=== PATIENT | female | born 1995 | race Caucasian/White ===

== ENCOUNTER 2021-04-05 09:33 | Emergency (ER) | payer SELFPAY ==
[2021-04-05] VITALS (7 sets, daily range): BP systolic 132–157; BP diastolic 80–105; PULSE 92–113; RESP 16–24; TEMP 37.3; O2SAT 97–100; BMI 45.9
--- NOTE | 2021-04-05 10:14 | ED_ITS ---
HPI - General Adult General Chief complaint: Abdominal Pain Stated complaint: abdominal pain started 04/03 Time Seen by Provider: 04/05/21 09:49 Source: patient Mode of arrival: Ambulatory Limitations: no limitations History of Present Illness HPI narrative: 25-year-old woman with a history of intermittent persistent asthma and morbid obesity presents with 2 days of upper abdominal pain. She states that it awoke her from sleep 2 nights ago she describes it as a dull consistent pain that if she turns or twists the right way can get worse. Not associated with nausea or vomiting. She has had some chills but no fevers. She notes that she has been having regular bowel movements but does not feel that they are her usual. She does not describe any burning type pain and food does not seem to influence this pain 1 where the other. Related Data Home Medications Medication Instructions Recorded Confirmed acetaminophen 500 mg tablet 500 mg PO QID PRN 07/02/18 07/13/18 cetirizine 10 mg tablet 10 mg PO DAILY 07/02/18 07/13/18 guaifenesin 1,200 mg tablet, 1,200 mg PO Q12H 07/02/18 07/13/18 extended release 12 hr Previous Rx's Medication Instructions Recorded levalbuterol tartrate 45 2 puff INHALATION Q6HP PRN #15 gram 07/09/18 mcg/actuation aerosol inhaler Allergies Allergy/AdvReac Type Severity Reaction Status Date / Time cat dander Allergy Severe Dyspnea Verified 04/05/21 09:48 house dust Allergy Severe Dyspnea Verified 04/05/21 09:48 trini Allergy Severe Itchiness Verified 04/05/21 09:48 in throat Review of Systems Review of Systems Narrative: Pertinent positive and negative findings as per HPI Remainder of review of systems is otherwise unremarkable for Constitutional: weakness ENT: No sore throat, neck pain, ear pain CV: Chest pain, palpitations, dyspnea on exertion Respiratory: Cough, wheeze, dyspnea : Dysuria, hematuria, flank pain MS: Muscle weakness, numbness, joint swelling or warmth Skin: Rashes, nonhealing lesions Neuro: Syncope, dizziness, tingling Patient History Medical History Asthma History of keloid of skin (2010) Seasonal allergies Surgical History History of local excision of skin lesion (2010) Family History Father No problems noted. Grandfather Heart attack Grandmother Breast cancer Ovarian cancer Uterine cancer Mother No problems noted. Grandfather COPD (chronic obstructive pulmonary disease) Grandmother No problems noted. Social History Smoking Status: Never smoker Smoking Status: Never smoker alcohol intake frequency: holidays/special occasions only Substance Use Type: does not use Exam Narrative Exam Narrative: General: Healthy appearing, in no acute distress. Able to give a complete and coherent history. Well-nourished well-developed HEENT: Moist mucous membranes, normal sclera with reactive pupils, Neck: No JVD, supple Respiratory: Lungs are clear to auscultation, no wheezing no rales no rhonchi. Full and symmetrical air movement Cardiac: Regular rate and rhythm no murmurs no bruits Abdomen: Soft, obese, mild tenderness in upper quadrants without rebound or guarding good bowel tones, no flank pain Skin: Warm and dry, no rashes Neurologic: Grossly neurologically intact with no obvious asymmetries or abnormalities Extremities: No trauma, well perfused Psych: Cooperative, appropriate insight and affect Initial Vital Signs Initial Vital Signs: Vital Signs Temperature 99.1 F 04/05/21 09:40 Pulse Rate 113 H 04/05/21 09:40 Respiratory Rate 16 04/05/21 09:40 Blood Pressure 157/105 H 04/05/21 09:40 Pulse Oximetry 99 04/05/21 09:40 Course Orders Ordered: ED Orders 04/05/21 09:40 Urine Culture Stat Urine Microscopic Stat 04/05/21 09:48 EKG-12 Lead Stat 04/05/21 10:10 Complete Blood Count AUTO DIFF Stat Comprehensive Metabolic Panel Stat Lipase Stat 04/05/21 10:21 XR abdomen 1V Stat Vital Signs Vital signs: Vital Signs - 8 hr 04/05/21 09:40 04/05/21 10:25 04/05/21 10:30 Temperature 99.1 F Pulse Rate 113 H 97 H 92 H Respiratory Rate 16 20 20 Blood Pressure 157/105 H Pulse Oximetry 99 98 100 04/05/21 11:00 04/05/21 11:18 04/05/21 11:30 Temperature Pulse Rate 93 H 101 H 94 H Respiratory Rate 20 24 Blood Pressure 132/80 139/80 Pulse Oximetry 99 99 99 Medical Decision Making Medical Records Medical records reviewed: Yes I reviewed the patient's medical records. Lab Data Lab results reviewed: Yes I reviewed the patient's lab results. Result diagrams: 04/05/21 10:10 04/05/21 10:10 Labs: Lab Results 04/05/21 04/05/21 04/05/21 Range/Units 09:40 10:10 10:10 WBC 10.9 (4.5-11.0) X10^3/uL RBC 4.57 (4.0-5.2) X10^6/uL Hgb 13.3 (12.0-16.0) g/dL Hct 40.2 (36-46) % MCV 87.9 (80-100) fL MCH 29.1 (26-34) PG MCHC 33.2 (30-36) % RDW 12.9 (11.6-14.8) % Plt Count 231 (150-400) X10^3/uL Neut % (Auto) 72.2 (50-75) % Lymph % (Auto) 18.8 L (25-40) % Graves % (Auto) 7.8 (3-14) % Eos % (Auto) 0.8 L (2-4) % Baso % (Auto) 0.4 (0-2) % Neut # (Auto) 7900 H (3234-0518) /uL Lymph # (Auto) 2000 (4353-9901) /uL Graves # (Auto) 800 (0-900) /uL Eos # (Auto) 100 (0-450) /uL Baso # (Auto) 0 (0-100) /uL Sodium 138 (137-145) mmol/L Potassium 3.6 (3.4-5.1) mmol/L Chloride 104 (98-107) mmol/L Carbon Dioxide 25 (22-32) mmol/L BUN 10 (7-17) mg/dL Creatinine 0.50 L (0.52-1.04) mg/dL Estimated GFR > 60.0 (>60) mL/min BUN/Creatinine Ratio 20.0 (6-22) Glucose 113 H (70-100) mg/dL Calcium 9.2 (8.4-10.2) mg/dL Total Bilirubin 0.7 (0.2-1.3) mg/dL AST 47 H (14-36) IU/L ALT 71 H (<35) IU/L Alkaline Phosphatase 70 (38-126) U/L Total Protein 7.9 (6.3-8.2) g/dL Albumin 4.3 (3.5-5.0) g/dL Globulin 3.6 (1.7-4.1) g/dL Albumin/Globulin Ratio 1.2 (1.0-2.8) Lipase 60 (23-300) U/L Urine RBC 10-30/hpf H (0-5/HPF) Urine WBC 1-5/hpf (0-5/HPF) Ur Squamous Epith Cells 1-5 /hpf (0-5/HPF) Amorphous Sediment 1+ Urine Bacteria Moderate (10-30) H (None) Ur Culture Indicated? Specimen cultured Point of Care Testing Test Results Negative Urine Dip Bedside Urine Glucose Negative Bedside Urine Bilirubin - Negative Bedside Urine Ketone - Negative Urine Specific [place] 1.025 Bedside Urine Occult Blood +++ Bedside Urine pH 6.0 Bedside Urine Protein +/- 15 Bedside Urine Urobilinogen - Negative Bedside Urine Nitrite - Negative Bedside Urine Leukocytes - Negative Esterase Point of care testing: Point of Care Testing Test Results Negative Urine Dip Bedside Urine Glucose Negative Bedside Urine Bilirubin - Negative Bedside Urine Ketone - Negative Urine Specific [place] 1.025 Bedside Urine Occult Blood +++ Bedside Urine pH 6.0 Bedside Urine Protein +/- 15 Bedside Urine Urobilinogen - Negative Bedside Urine Nitrite - Negative Bedside Urine Leukocytes - Negative Esterase Imaging Data Abdominal x-ray: Radiologist's Impression: FINDINGS: Surgical changes and devices: None. Bowel: Bowel gas pattern is normal. Soft tissues: No suspicious abdominal calcifications. Visualized solid organ contours appear normal in size. Bones: No suspicious bony lesions. IMPRESSION: Nonspecific bowel gas pattern, no evidence of intestinal obstruction or perforation. Dictated by: Rodolfo Miller M.D. on 04/05/2021 at 10:47 MDM Narrative Medical decision making narrative: Woman presents with upper abdominal pain without flank pain or dysuria. Microscopic urine has some red blood cells and occasional bacteria. This has been cultured and will wait to see culture prior to treating. Findings are reviewed with patient. Pain is minimal and she certainly does not have a surgical abdomen. Will have her try 2 weeks of omeprazole to see if this influences her pain. Will also suggest she follow-up with the health divisional human resources director to try and establish a primary care physician. If pain worsens the next step in her workup would be a CT scan of the abdomen but I do not feel that is required or necessary with today's visit. All of this is reviewed with patient questions are answered. She is safe for home discharge Discharge Plan Departure Prescriptions: No Action cetirizine [Zyrtec] 10 mg tablet 10 mg PO DAILY RF: 0 acetaminophen [Tylenol Extra Strength] 500 mg tablet 500 mg PO QID PRNRF: 0 guaifenesin [Mucinex] 1,200 mg tablet extended release 12hr 1,200 mg PO Q12H RF: 0 levalbuterol tartrate [Xopenex HFA] 45 mcg/actuation HFA aerosol inhaler 2 puff INHALATION Q6HP PRN (Reason: shortness of breath or wheezing) Qty: 15 RF: 2
[2021-04-05 10:15] LABS: Amorphous Sediment Urine 1+; Bacteria Urine Moderate (10-30); Culture Indicated Urine Specimen Cultured; RBC Urine 10-30/HPF (0-5/HPF); Squamous Epithelial Cell Urine 1-5 /HPF (0-5/HPF); WBC Urine 1-5/HPF (0-5/HPF)
[2021-04-05 10:20] LABS: Add Manual Diff / Slide Review NO; Basophils Absolute Auto 0 /uL (0-100); Basophils Percent Auto 0.4 % (0-2); Eosinophils Absolute Auto 100 /uL (0-450); Eosinophils Percent Auto 0.8 % (2-4); Hematocrit 40.2 % (36-46); Hemoglobin 13.3 g/dL (12.0-16.0); Lymphocytes Absolute Auto 2000 /uL (1100-4500); Lymphocytes Percent Auto 18.8 % (25-40); Mean Corpuscular HGB Conc 33.2 % (30-36); Mean Corpuscular Hemoglobin 29.1 PG (26-34); Mean Corpuscular Volume 87.9 fL (80-100); Monocytes Absolute Auto 800 /uL (0-900); Monocytes Percent Auto 7.8 % (3-14); Neutrophils Absolute Auto 7900 /uL (1500-7000); Neutrophils Percent Auto 72.2 % (50-75); Platelet Count 231 X10^3/uL (150-400); Red Blood Cell Count 4.57 X10^6/uL (4.0-5.2); Red Cell Distribution Width 12.9 % (11.6-14.8); White Blood Cell Count 10.9 X10^3/uL (4.5-11.0)
--- NOTE | 2021-04-05 10:21 | DI.RAD.S_ITS ---
PROCEDURE: XR ABDOMEN 1V INDICATIONS: abdominal pain upper quadrants TECHNIQUE: One view of the abdomen acquired. COMPARISON: None. FINDINGS: Surgical changes and devices: None. Bowel: Bowel gas pattern is normal. Soft tissues: No suspicious abdominal calcifications. Visualized solid organ contours appear normal in size. Bones: No suspicious bony lesions. IMPRESSION: Nonspecific bowel gas pattern, no evidence of intestinal obstruction or perforation. Dictated by: Rodolfo Miller M.D. on 04/05/2021 at 10:47 Approved by: Rodolfo Miller M.D. on 04/05/2021 at 10:47
[2021-04-05 10:34] LABS: Alanine Aminotransferase 71 IU/L (<35); Albumin 4.3 g/dL (3.5-5.0); Albumin Globulin Ratio 1.2 (1.0-2.8); Alkaline Phosphatase 70 U/L (38-126); Aspartate Aminotransferase 47 IU/L (14-36); Bilirubin Total 0.7 mg/dL (0.2-1.3); Blood Urea Nitrogen 10 mg/dL (7-17); Calcium 9.2 mg/dL (8.4-10.2); Carbon Dioxide 25 mmol/L (22-32); Chloride 104 mmol/L (98-107); Estimated Glomerular Filt Rate > 60.0 mL/min (>60); Globulin 3.6 g/dL (1.7-4.1); Glucose 113 mg/dL (70-100); HEMOLYSIS < 15 (0-50); Lipase 60 U/L (23-300); Potassium 3.6 mmol/L (3.4-5.1); Sodium 138 mmol/L (137-145); Total Protein 7.9 g/dL (6.3-8.2)
== END 2021-04-05 12:27 | disposition home or self-care (01) ==
PROVIDERS: Emergency Provider Emergency Medicine
DX: R10.10 Upper abdominal pain, unspecified (principal)
CPT/HCPCS: 36415; 74018; 80053; 81003; 81015; 81025; 83690; 85025; 87086; 93005; 93010; 99283; 99284

== ENCOUNTER → 2024-06-14 08:12 | Outpatient (CLI) | payer SELFPAY ==
[2024-06-14 09:21] LABS: Influenza A - CEPHEID Flu A NEGATIVE (NEGATIVE); Influenza B - CEPHEID Flu B NEGATIVE (NEGATIVE); Respiratory Syncytial Virus Negative (Negative)
[2024-06-14 14:57] LABS: COVID-19 CEPHEID 4-PLEX PCR Negative (Negative)
== END ==
PROVIDERS: Visit Provider Nurse Practitioner Family
DX: R05.1 Acute cough (principal)
CPT/HCPCS: 0241U; 87070